=== PATIENT | female | born 2000 | race Hispanic/Latino ===

== ENCOUNTER 2022-01-22 21:20 | Emergency (ER) | payer SELFPAY ==
[2022-01-22] MEDS ORDERED: Boostrix 0.5 ML (Tdap) VIAL (>/=7 yrs of age) ONE (22:42)
[2022-01-22] MEDS ORDERED: CEFAZOLIN 2 GM VIAL ONE (22:42)
[2022-01-22] MEDS ORDERED: Bupivacaine 0.25% 10 ML VIAL ONE (22:42)
[2022-01-22] MEDS ORDERED: Lidocaine 1% PF 5 ML VIAL ONE (22:42)
== END 2022-01-23 00:31 | disposition home or self-care (01) ==
LOC: ERS 21:20
DX: S62.521B Displaced fracture of distal phalanx of right thumb, initial encounter for open fracture (principal); W20.8XXA Other cause of strike by thrown, projected or falling object, initial encounter; Z23 Encounter for immunization
CPT/HCPCS: 12001; 90471; 90715; 96365; J0690; S0020